=== PATIENT | female | born 1945 | race Caucasian/White ===

== ENCOUNTER 2021-11-07 12:25 | Emergency (ER) | payer MEDICARE | END 2021-11-07 15:10 | disposition home or self-care (01) | LOC: ER1 12:25 | DX: S13.4XXA Sprain of ligaments of cervical spine, initial encounter (principal); S00.83XA Contusion of other part of head, initial encounter; S00.511A Abrasion of lip, initial encounter; Z23 Encounter for immunization; W01.0XXA Fall on same level from slipping, tripping and stumbling without subsequent striking against object, initial encounter; I10 Essential (primary) hypertension | CPT/HCPCS: 70450; 70486; 72125; 90471; 99284 ==